=== PATIENT | female | born 1965 | race Caucasian/White ===

== ENCOUNTER → 2016-11-19 | Day surgery (SDC) | payer BC ==
--- NOTE | 2016-11-20 16:22 | PATH ---
Surgical Pathology Report Patient Name: JENELLE ZEPEDA [facility]. Rec. #: [id number] /Age/Gender: 1965 (Age: 51) / F Account: [id number] Location: [facility]END[facility] Taken: 11/19/2016 Received: 11/19/2016 Reported: 11/20/2016 Physicians: Kwabena Ram M.D. Specimen(s) Received RIGHT BREAST 10 O'CLOCK 3CM FN Clinical History Ultrasound findings: Suspicious Final Diagnosis BREAST, RIGHT, 10:00, 3 CM FNCORE BIOPSY: BENIGN BREAST TISSUE SHOWING STROMAL FIBROSIS AND FIBROADENOMATOID CHANGE. Electronically Signed Evelyne Yuen M.D. Gross Description Received in formalin labeled "right breast 10:00, 3 cmfn," is a 2.0 x 1.4 x 0.2 cm aggregate of munoz-yellow, irregular to cylindrical portions of fibroadipose tissue. The formalin is filtered and the specimen is entirely submitted in one cassette. Time to formalin fixation: 2 minutes Total formalin fixation time: Approximately 8 hours. 11/19/201611/19/2016
== END | disposition home or self-care (01) ==
LOC: FRADUS-SUR 13:14
PROVIDERS: ATTEND Obstetrics & Gynecology
PROC: 0HBT3ZX Excision of Right Breast, Percutaneous Approach, Diagnostic (ICD-10-PCS; principal; 2016-11-19)
DX: N63 Unspecified lump in breast (principal); N60.31 Fibrosclerosis of right breast
CPT/HCPCS: 19083; 87899; 88305-TC; A4648; G0206-TC